=== PATIENT | female | born 1995 | race Two or more races ===

== ENCOUNTER 2017-07-08 18:45 | Outpatient (CLI) | payer MEDICAID ==
[2017-07-08 19:26] LABS: BILIRUBIN,URINE NEGATIVE (NEGATIVE); COLOR,URINE YELLOW; GLUCOSE, URINE NEGATIVE (NEGATIVE); KETONES,URINE NEGATIVE (NEGATIVE); LEUKOCYTE ESTERASE,URINE NEGATIVE (NEGATIVE); NITRITE,URINE NEGATIVE (NEGATIVE); PROTEIN,URINE NEGATIVE (NEGATIVE); URINE SPECIFIC GRAVITY 1.024
[2017-07-08 19:31] LABS: APPEARANCE,URINE CLEAR
[2017-07-08 19:34] LABS: AMNISURE (ROM) NEGATIVE (NEGATIVE)
[2017-07-08 19:41] LABS: URINE AMPHETAMINES SCREEN NEGATIVE; URINE BARBITURATES SCREEN NEGATIVE; URINE BENZODIAZEPINES SCREEN NEGATIVE; URINE COCAINE SCREEN NEGATIVE; URINE MARIJUANA (THC) SCREEN NEGATIVE; URINE METHADONE SCREEN NEGATIVE; URINE PHENCYCLIDINE SCREEN NEGATIVE
--- NOTE | 2017-07-08 20:31 | Non Stress Test Report ---
Non Stress Test Datetime Report Generated by CPN: 07/08/2017 20:31 DEMOGRAPHIC EGA NST: 37.5 INDICATION Indication for Study: Ordered by Provider VITAL SIGNS Temperature - NST: 97.4 Pulse - NST: 86 RESP - NST: 16 NBPSYS NST: 117 NBPDIA NST: 62 URINE RESULTS Urine Protein, NST: Negative Urine Ketones - NST: Negative Urine Glucose - NST: Negative Urine Blood - NST: Negative MONITORING Monitor Explained: Monitor Explained; Test Explained; Patient Verbalized Understanding Time on Monitor: 07/08/2017 19:23 Time off Monitor: 07/08/2017 20:02 NST Duration: 39 NST INTERVENTIONS NST Interventions: None Physician Notified NST: Dr. Rizo BABY A: [id number] BABY A Movement : Present Contraction Frequency : Ctx x3 FHR Baseline : 145 Accelerations : 15X15 Decelerations : Variable Variability : Moderate 6-25bpm NST Review: Meets Criteria for Reactive NST NST Review and Verified By : B Kerns, RN NST Results: Reactive NST COMMENTS NST Comments: Dr Rizo aware of spontaneous decel. NST REPORT Report Trigger: Send Report
== END 2017-07-08 20:17 | disposition home or self-care (01) ==
LOC: LC 18:45
PROVIDERS: ATTEND Student in an Organized Health Care Education/Training Program
PROC: 4A1HXCZ Monitoring of Products of Conception, Cardiac Rate, External Approach (ICD-10-PCS; principal; 2017-07-08)
DX: O47.1 False labor at or after 37 completed weeks of gestation (principal); Z3A.37 37 weeks gestation of pregnancy
CPT/HCPCS: 59025; 80307; 81005; 84112

== ENCOUNTER 2017-07-10 23:07 | Outpatient (CLI) | payer MEDICAID ==
[2017-07-11 00:02] LABS: APPEARANCE,URINE CLEAR; BILIRUBIN,URINE NEGATIVE (NEGATIVE); COLOR,URINE YELLOW; GLUCOSE, URINE NEGATIVE (NEGATIVE); KETONES,URINE NEGATIVE (NEGATIVE); LEUKOCYTE ESTERASE,URINE NEGATIVE (NEGATIVE); NITRITE,URINE NEGATIVE (NEGATIVE); PROTEIN,URINE NEGATIVE (NEGATIVE); URINE SPECIFIC GRAVITY 1.016; UROBILINOGEN,URINE NEGATIVE mg/dL (<2.0)
[2017-07-11 00:24] LABS: URINE AMPHETAMINES SCREEN NEGATIVE; URINE BARBITURATES SCREEN NEGATIVE; URINE BENZODIAZEPINES SCREEN NEGATIVE; URINE COCAINE SCREEN NEGATIVE; URINE MARIJUANA (THC) SCREEN NEGATIVE; URINE METHADONE SCREEN NEGATIVE; URINE PHENCYCLIDINE SCREEN NEGATIVE
--- NOTE | 2017-07-11 04:13 | Non Stress Test Report ---
Non Stress Test Datetime Report Generated by CPN: 07/11/2017 04:13 DEMOGRAPHIC EGA NST: 38.1 INDICATION Indication for Study: Other Indication for Study (NST) Other: LC URINE RESULTS Urine Protein, NST: Negative Urine Ketones - NST: Negative Urine Glucose - NST: Negative Urine Blood - NST: Negative MONITORING Monitor Explained: Monitor Explained; Test Explained; Patient Verbalized Understanding Time on Monitor: 07/10/2017 23:29 Time off Monitor: 07/11/2017 23:50 NST Duration: 1461 NST INTERVENTIONS NST Interventions: PO Hydration Physician Notified NST: Landaverde BABY A: [id number] BABY A Movement : Present Contraction Frequency : x2 +irritability FHR Baseline : 140 Accelerations : 15X15 Decelerations : None Variability : Moderate 6-25bpm NST Review: Meets Criteria for Reactive NST NST Review and Verified By : Filippo Alberts RN NST Results: Reactive NST REPORT Report Trigger: Send Report
== END 2017-07-11 04:13 | disposition home or self-care (01) ==
LOC: LC 23:07
PROVIDERS: ATTEND Student in an Organized Health Care Education/Training Program
PROC: 4A1HXCZ Monitoring of Products of Conception, Cardiac Rate, External Approach (ICD-10-PCS; principal; 2017-07-10)
DX: O47.1 False labor at or after 37 completed weeks of gestation (principal); Z3A.38 38 weeks gestation of pregnancy
CPT/HCPCS: 59025; 80307; 81005

== ENCOUNTER 2017-07-19 08:42 | Inpatient (IN) | payer MEDICAID ==
[2017-07-19] MEDS ORDERED: HYDROXYZINE PAMOATE 50 MG CAPSULE ONE (09:23)
[2017-07-19 09:40] LABS: APPEARANCE,URINE CLEAR; BILIRUBIN,URINE NEGATIVE (NEGATIVE); COLOR,URINE YELLOW; GLUCOSE, URINE NEGATIVE (NEGATIVE); KETONES,URINE NEGATIVE (NEGATIVE); LEUKOCYTE ESTERASE,URINE NEGATIVE (NEGATIVE); NITRITE,URINE NEGATIVE (NEGATIVE); PROTEIN,URINE NEGATIVE (NEGATIVE); URINE SPECIFIC GRAVITY 1.019; UROBILINOGEN,URINE NEGATIVE mg/dL (<2.0)
[2017-07-19 09:56] LABS: URINE AMPHETAMINES SCREEN NEGATIVE; URINE BARBITURATES SCREEN NEGATIVE; URINE BENZODIAZEPINES SCREEN NEGATIVE; URINE COCAINE SCREEN NEGATIVE; URINE MARIJUANA (THC) SCREEN NEGATIVE; URINE METHADONE SCREEN NEGATIVE; URINE PHENCYCLIDINE SCREEN NEGATIVE
[2017-07-19] MEDS ORDERED: FENTANYL/BUPIVACAINE/NS/PF 200 MCG/100 ML RTUINJ EPI ONE (10:30)
[2017-07-19] MEDS ORDERED: OXYTOCIN/NORMAL SALINE 20 UNIT/1,000 ML RTUINJ ONE (10:30)
[2017-07-19] MEDS ORDERED: EPHEDRINE SULFATE INJ 50 MG/1 ML AMPULE ONE (10:30)
[2017-07-19] MEDS ORDERED: LIDOCAINE 1% INJ-PF (10 MG/ML) 30 ML SDV ONE (10:30)
[2017-07-19] MEDS ORDERED: MISOPROSTOL 0.2 MG TABLET ONE (10:30)
[2017-07-19] MEDS ORDERED: BUPIVACAINE HCL 0.25 % INJ/PF (2.5 MG/1 ML) 30 ML VIAL ONE (10:30)
[2017-07-19] MEDS ORDERED: RINGERS SOLUTION,LACTATED 1,000 ML IV PRN (11:08)
[2017-07-19 11:30] LABS: ABSOLUTE LYMPHOCYTES (AUTO) 1.4 10^3/uL (0.5-4.7); ABSOLUTE MONOCYTES (AUTO) 0.6 10^3/uL (0.1-1.4); ABSOLUTE NEUT (AUTO) 6.8 10^3/uL (1.7-8.2); BASOPHILS % (AUTO) 0.2 % (0-2); EOSINOPHILS % (AUTO) 0.2 % (0-6); HEMATOCRIT 34.5 % (36.0-47.0); HEMOGLOBIN 11.5 g/dL (12.0-15.5); LYMPHOCYTES % (AUTO) 16.1 % (13-45); MEAN CORPUSCULAR HEMOGLOBIN 28.8 pg (27.0-33.4); MEAN CORPUSCULAR HGB CONC 33.3 g/dL (32.0-36.0); MEAN CORPUSCULAR VOLUME 86 fl (80-97); MONOCYTES % (AUTO) 7.2 % (3-13); PLATELET COUNT 140 10^3/uL (150-450); RED BLOOD COUNT 3.99 10^6/uL (3.72-5.28); RED CELL DISTRIBUTION WIDTH 13.8 % (11.5-14.0); SEGMENTED NEUTROPHILS % (AUTO) 76.3 % (42-78); TOTAL CELLS COUNTED % (AUTO) 100 %; WHITE BLOOD COUNT 8.9 10^3/uL (4.0-10.5)
--- NOTE | 2017-07-19 11:41 | Admission Physical ---
Datetime Report Generated by CPN: 07/19/2017 11:40 CURRENT ADMISSION Chief Complaint: Uterine Contractions Indication for Induction: Not Applicable Indication for Induction: Term, Intrauterine ; Active Labor Admit Plan: Admit to Unit; Initiate Labor Protocol ALLERGIES Medication Allergies: No Medication Allergies: No Known Allergies (07/19/2017) Medication Allergies: No Known Allergies (07/10/2017) Medication Allergies: No Known Allergies (07/08/2017) Medication Allergies: None Latex: No Latex Allergies Food Allergies: None Environmental Allergies: None OBSTETRICAL HISTORY EDC: 07/24/2017 00:00 : 1 Para: 0 Term: 0 : 0 SAB: 0 IAB: 0 Ectopic: 0 Livin Cesareans: 0 VBACs: 0 Multiple Births: 0 Gestational Diabetes: No Rh Sensitization: No Incompetent Cervix: No BRIA: No Infertility: No ART Treatment: No Uterine Anomaly: No IUGR: No Hx Previous C/S: No Macrosomia: No Hx Loss/Stillborn: No PIH: No Hx : No Placenta Previa/Abruption: No Depression/PP Depression: No PTL/PROM: No Post Hemorrhage: No Current Procedures: NST Obstetrical History Comments: G1- current SEE RECORDS Alcohol: No Marijuana : No Cocaine: No Other Illicit Drugs: No Cigarettes: Never Smoker. [id number] MEDICAL HISTORY Diabetes: No Blood Transfusion: No Pulmonary Disease (Asthma, TB): No Breast Disease: No Hypertension: No Superintendent Meter Tests Surgery: No Heart Disease: No Hosp/Surgery: No Autoimmune Disorder: No Anesthetic Complications: No Kidney Disease: No Abnormal Pap Smear: No Neuro/Epilepsy: No Psychiatric Disorders: No Other Medical Diseases: No Hepatitis/Liver Disease: No Significant Family History: No Varicosities/Phlebitis: No Trauma/Violence : No Thyroid Dysfunction: No INFECTIOUS HISTORY Gonorrhea: No Genital Herpes: No Chlamydia: No Tuberculosis: No Syphilis: No Hepatitis: No HIV/AIDS Exposure: No Rash or Viral Illness: No HPV: No PHYSICAL EXAM General: Normal HEENT: Normal Neurologic: Normal Thyroid: Deferred Heart: Normal Lungs: Normal Breast: Deferred Back: Normal Abdomen: Normal Genitourinary Exam: Normal Extremities: Normal DTRs: Normal Pelvic Type: Adequate Vital Signs: Reviewed VAGINAL EXAM Dilatation: 5 Effacement: 100 Station: -1 Contraction Comments: q 2-3 FETUS A EGA: 39.2 Monitoring: External US FHR- Baseline: 150 Variability: Moderate 6-25bpm Accelerations: 15X15 Decelerations: None FHR Category: Category I Presentation: Vertex Admit Comment: 21yo at 39+2ega presented for uterine ctx with cervical change noted within an hour to 5cm. Admit to L_D for active labor. pelvis adequate for LAURA. Reassuring FWB. GBS negative.Late transfer from [facility]. Anticipate . INFORMED CONSENT Informed Consent Obtained: Vaginal Delivery; Risks, Benefits and Alternatives Discussed Signature: with User ID: [email or web address]
[2017-07-19] MEDS ORDERED: PHENYLEPHRINE HCL INJ/PF 10 MG/1 ML SDV ONE (11:52)
[2017-07-19] MEDS ORDERED: FENTANYL CITRATE INJ/PF 100 MCG/2 ML AMPUL ONE (11:52)
[2017-07-19] MEDS ORDERED: RINGERS SOLUTION,LACTATED 1,000 ML IV ONE (12:30)
--- NOTE | 2017-07-19 14:05 | L&D Progress Notes ---
PROGRESS NOTES Datetime Report Generated by CPN: 07/19/2017 14:05 PROGRESS NOTE Impression: Normal Progression of Labor Procedures: Artificial ROM; Sterile Vag Exam Plan: Continue Present Management Informed Consent Obtained: Vaginal Delivery; Risks, Benefits and Alternatives Discussed Comment: SVE w AROM-bloody fluid noted. VAGINAL EXAM Dilatation: 7 Dilatation: 5 Effacement: 100 Effacement: 100 Station: -1 Station: -1 Contractions: q 2-3 MEMBRANES Membranes: Ruptured Amniotic Fluid Color: Bloody FETUS A FHR - Baseline: 150 Monitoring: External US Variability: Moderate 6-25bpm Decelerations: Early; Late Presentation: Vertex SIGNATURE SIGNATURE: ,[id number];,[id number];,[id number] SIGNATURE: ,[id number];,[id number] SIGNATURE: ,[id number] SIGNATURE: ,[id number] Assignment: Adriana Landaverde MD Signature: with User ID: [email or web address] : with User ID: [email or web address] : I personally evaluated and examined the patient in conjunction with the MLP and agree with the assessment, treatment plan and disposition.
[2017-07-19] MEDS ORDERED: PROMETHAZINE HCL 25 MG TABLET PO PRN (17:09)
[2017-07-19] MEDS ORDERED: PROMETHAZINE HCL INJ 25 MG/1 ML VIAL IV PRN (17:09)
[2017-07-19] MEDS ORDERED: BENZOCAINE/MENTHOL AEROSOL SPRAY 56 ML TOP PRN (17:09)
[2017-07-19] MEDS ORDERED: DIPHENHYDRAMINE HCL 25 MG CAPSULE PO PRN (17:09)
[2017-07-19] MEDS ORDERED: GLYCERIN/WITCH HAZEL LEAF 1 EACH MED..PAD TP PRN (17:09)
[2017-07-19] MEDS ORDERED: OXYTOCIN/NORMAL SALINE 20 UNIT/1,000 ML RTUINJ IV PRN (17:09)
[2017-07-19] MEDS ORDERED: MEASLES,MUMPS&RUBELLA VACC/PF 0.5 ML VIAL SUBCUT PRN (17:09)
[2017-07-19] MEDS ORDERED: DIBUCAINE 1% OINTMENT 28 GM TP PRN (17:09)
[2017-07-19] MEDS ORDERED: MAGNESIUM HYDROXIDE SUSP 30 ML UDCUP PO PRN (17:09)
[2017-07-19] MEDS ORDERED: PROMETHAZINE HCL 25 MG SUPP.RECT PR PRN (17:09)
[2017-07-19] MEDS ORDERED: DIPH/PERTUSS(ACELL)/TETANUS VAC/PF 0.5 ML SYR (>=10YO) IM PRN (17:09)
[2017-07-19] MEDS ORDERED: ACETAMINOPHEN 325 MG TABLET PO PRN (17:09)
[2017-07-19] MEDS ORDERED: ZOLPIDEM TARTRATE 5 MG TABLET PO PRN (17:09)
[2017-07-19] MEDS ORDERED: NA PHOS,M-B/NA PHOS,DI-BA (ADULT) 133 ML ENEMA PR PRN (17:09)
[2017-07-19] MEDS ORDERED: PSEUDOEPHEDRINE HCL 30 MG TABLET PO PRN (17:09)
[2017-07-19] MEDS ORDERED: ACETAMINOPHEN WITH CODEINE #3 TABLET PO PRN ×2 (17:09)
--- NOTE | 2017-07-19 17:41 | Warning Signs in Babies ---
VOD Warning Signs Datetime Report Generated by [facility]: 07/19/2017 17:40 VOD#608 -Warning Signs in Babies: Needs to be viewed. (07/08/2017 18:51:Muriel Carmichael RN)
[2017-07-19] MEDS: FAMOTIDINE 20 MG TABLET PO SCH (21:57)
[2017-07-19] MEDS: IBUPROFEN 800 MG TABLET PO SCH (21:58)
[2017-07-20] MEDS: FERROUS SULFATE 325 MG TABLET PO SCH ×3 (04:41→18:31)
[2017-07-20] MEDS: DOCUSATE SODIUM 100 MG CAPSULE PO SCH ×3 (04:41→18:31)
[2017-07-20] MEDS: IBUPROFEN 800 MG TABLET PO SCH ×3 (05:45→22:30)
[2017-07-20 07:28] LABS: HEMATOCRIT 30.6 % (36.0-47.0); HEMOGLOBIN 10.4 g/dL (12.0-15.5); MEAN CORPUSCULAR HEMOGLOBIN 29.3 pg (27.0-33.4); MEAN CORPUSCULAR VOLUME 86 fl (80-97); PLATELET COUNT 127 10^3/uL (150-450); RED BLOOD COUNT 3.55 10^6/uL (3.72-5.28); WHITE BLOOD COUNT 9.5 10^3/uL (4.0-10.5)
--- NOTE | 2017-07-20 08:52 | Delivery Summary ---
Del Sum A-C Datetime Report Generated by CPN: 07/20/2017 08:52 DELIVERY PERSONNEL DELIVERY PERSONNEL: [id number] Delivery Doctor:: Xiomy Buchanan CNM Labor and Delivery Nurse:: Muriel Carmichael RN Labor and Delivery Nurse:: XU Mathew Starchmaker/ACQUISITION MARKETING MANAGER: Nell Whiting, DIRECTOR INDUSTRIAL RELATIONS Additional Personnel: : Linda Abdalla RN MATERNAL INFORMATION Delivery Anesthesia: Epidural Medications After Delivery: Pitocin Bolus-Please Comment Meds After Delivery Comment: pitocin 20 units in 1000ml NS bolusing after delivery of placenta Estimated Blood Loss (ml): 250 Maternal Complications: None Provider Comments: viable female in vertex OA to WILLA at 1648 under epidural anesthesia. Bulb suctioned, nose and mouth, after delivery. Spontaneous respirations and cry. 3-vessel cord. Apgars 9-9. Cord clamped x 2, after 2 min delay, then cut by FOB. Placenta, membranes, and cord expelled at 1654, Be. Placenta appears intact. Vaginal tear repaired as directed above. Patient tolerated procedure well. FF at U-3. Hemostasis achieved. LABOR SUMMARY EDC: 07/24/2017 00:00 No. Babies in Womb: 1 Attempted: No Labor Anesthesia: Epidural LABOR INFORMATION Reason for Induction: Not Applicable Onset of Labor: 07/19/2017 10:14 Complete Dilatation: 07/19/2017 15:59 Oxytocin: N/A Group B Beta Strep: negative Steroids Given: None Reason Steroids Not Administered: Not Applicable MEMBRANES Membranes Rupture Method: Artificial Rupture of Membranes: 07/19/2017 13:57 Length of Rupture (hr): 2.85 Amniotic Fluid Color: Bloody Amniotic Fluid Amount: Small Amniotic Fluid Odor: Normal STAGES OF LABOR Stage 1 hr: 5 Stage 1 min: 45 Stage 2 hr: 0 Stage 2 min: 49 Stage 3 hr: 0 Stage 3 min: 6 Total Time in Labor hr: 6 Total Time in Labor min: 40 VAGINAL DELIVERY Episiotomy: None Laceration #1: Vaginal Laceration Extension #1: First Degree Laceration #2: None Laceration Extension #2: N/A Laceration #3: None Laceration Extension #3: N/A Laceration Repair: Yes Laceration Repair Note: 1st degree vaginal tear repaired with 3-0 Chromic using interrupted stitches Sponge Count Correct: N/A Sharps Count Correct: Yes CSECTION DELIVERY Primary Indication: N/A Secondary Indication: N/A CSection Incidence: N/A Labor: N/A Elective: N/A CSection Incision: N/A BABY A INFORMATION Delivery Date/Time: 07/19/2017 16:48 Method of Delivery: Vaginal Born in Route : No : N/A Forceps: N/A Vacuum Extraction: N/A Shoulder Dystocia : No PRESENTATION/POSITION BABY A Presentation: Cephalic Presentation: Cephalic Presentation: Cephalic Presentation: Cephalic Cephalic Presentation: Vertex Vertex Position: Left Occipital Anterior Breech Presentation: N/A PLACENTA INFORMATION BABY A Placenta Delivery Time : 07/19/2017 16:54 Placenta Method of Delivery: Spontaneous Placenta Status: Delivered SCORES BABY A Heart Rate 1 min: >100 bpm Resp Effort 1 min: Good Cry Reflex Irritability 1 min: Cough or Sneeze or Pulls Away Muscle Tone 1 min: Active Motion Color 1 min: Body [place], Extremities Blue Resuscitation Effort 1 min: Tactile Stimulation SCORE 1 MIN: 9 Heart Rate 5 min: >100 bpm Resp Effort 5 min: Good Cry Reflex Irritability 5 min: Cough or Sneeze or Pulls Away Muscle Tone 5 min: Active Motion Color 5 min: Body [place], Extremities Blue Resuscitation Effort 5 min: Tactile Stimulation SCORE 5 MIN: 9 INFORMATION BABY A Gestational Age at Delivery: 39.2 Gestational Status: Full Term- 39- 40.6 Weeks Infant Outcome : Liveborn Infant Condition : Stable Sex: Female IDENTIFICATION BABY A Verification Date/Time: 07/19/2017 17:52 ID Band Number: [id number] Mother's Name Verified: Yes Infant RN Verifying : S. Camp, RN/ C. [place], RN WEIGHT/LENGTH BABY A Birthweight (gm): 2790 Infant Weight (lb): 6 Infant Weight (oz): 2 Length (in): 19.50 Length (cm): 49.53 CORD INFORMATION BABY A No. Cord Vessels: 3 Nuchal Cord : N/A Cord Blood Taken: Yes-For Storage (Mom's Blood type +) Infant Suction: Mouth; Nose (Annotations: Data stored by [facility] on behalf of user) ASSESSMENT BABY A Complications: Meconium Physical Findings at Delivery: Within Normal Limits; Molding of the Head Respirations: Appears Normal Skin to Skin: Yes Care By: leanne abdalla rn Transferred To: Remains with Mother BABY B INFORMATION : N/A SIGNATURES Assignment: Adriana Landaverde MD Signature: with User ID: [email or web address] : with User ID: [email or web address] : I personally evaluated and examined the patient in conjunction with the MLP and agree with the assessment, treatment plan and disposition. : I personally evaluated and examined the patient in conjunction with the MLP and agree with the assessment, treatment plan and disposition.
[2017-07-20] MEDS: FAMOTIDINE 20 MG TABLET PO SCH ×2 (09:09→21:00)
[2017-07-20] MEDS: SENNOSIDES/DOCUSATE 8.6-50 MG 1 EACH TABLET PO SCH (09:09)
[2017-07-20] MEDS: PRENATAL VITAMIN W DHA CAPSULE PO SCH (09:10)
--- NOTE | 2017-07-20 10:13 | PDOC PROGRESS REPORT ---
Subjective-OB Progress Note for:: 07/20/17 Subjective: Day 1 s/p Denies concerns, voiding without difficulty, lochia is stable, pain well controlled. Physical Exam (OB) Vital Signs: Temp Pulse Resp BP Pulse Ox 98.3 F 75 15 101/52 L 99 07/20/17 07:31 07/20/17 07:31 07/20/17 07:31 07/20/17 07:31 07/20/17 07:31 Intake & Output 07/19/17 07/20/17 07/21/17 06:59 06:59 06:59 Weight 73.2 kg - Lochia Lochia Amount: Scant < 10 ml Lochia Color: Rubra/Red - Abdomen Description: Soft, Flat Hernia Present: No Fundal Description: Firm, Midline Fundal Height: u/u - u/2 Objective-Diagnostic Laboratory: 07/20/17 07:04 07/19/17 07/19/17 07/20/17 11:14 11:14 07:04 WBC 8.9 9.5 RBC 3.99 3.55 L Hgb 11.5 L 10.4 L Hct 34.5 L 30.6 L MCV 86 86 MCH 28.8 29.3 MCHC 33.3 34.0 RDW 13.8 14.0 Plt Count 140 L 127 L Seg Neutrophils % 76.3 Lymphocytes % 16.1 Monocytes % 7.2 Eosinophils % 0.2 Basophils % 0.2 Absolute Neutrophils 6.8 Absolute Lymphocytes 1.4 Absolute Monocytes 0.6 Absolute Eosinophils 0.0 Absolute Basophils 0.0 Blood Type A POSITIVE Antibody Screen NEGATIVE Assessment and Plan(PN) - Assessment and Plan (1) Limited care Qualifiers: Trimester: third trimester Qualified Code(s): O09.33 - Supervision of with insufficient care, third trimester Is this a current diagnosis for this admission?: Yes Plan: d/c planning (2) Meconium in amniotic fluid affecting management of mother, delivered Is this a current diagnosis for this admission?: Yes Plan: monitor baby (3) Vaginal delivery Is this a current diagnosis for this admission?: Yes Plan: routine pp care - Time Spent with Patient Time with patient: Less than 15 minutes Critical Time spent with patient: Less than 15 minutes Medications reviewed and adjusted accordingly: Yes - Disposition Anticipated Discharge: Home Within: within 24 hours
[2017-07-21] MEDS: IBUPROFEN 800 MG TABLET PO SCH (05:56)
--- NOTE | 2017-07-21 08:35 | PDOC DISCHARGE SUMMARY ---
Final Diagnosis Discharge Date: 07/21/17 - Final Diagnosis (1) Limited care Is this a current diagnosis for this admission?: Yes (2) Meconium in amniotic fluid affecting management of mother, delivered Is this a current diagnosis for this admission?: Yes (3) Vaginal delivery Is this a current diagnosis for this admission?: Yes Discharge Data - Discharge Medication Prescriptions: Docusate Sodium [Colace 100 mg Capsule] 100 mg PO BID #60 capsule Ferrous Sulfate [Feosol 325 mg Tablet] 325 mg PO BID #60 tablet Ibuprofen [Motrin 800 mg Tablet] 800 mg PO Q8 #60 tablet Home Medications: Vit No.129/Iron/Folic [ One Daily Tablet] 1 each PO DAILY 07/08 Docusate Sodium [Colace 100 mg Capsule] 100 mg PO BID #60 capsule 07/21/17 Ferrous Sulfate [Feosol 325 mg Tablet] 325 mg PO BID #60 tablet 07/21/17 Ibuprofen [Motrin 800 mg Tablet] 800 mg PO Q8 #60 tablet 07/21/17 Gestational Age: 39.2 Reason(s) for Admission: Onset of Labor Procedures: NST Intrapartum Procedure(s): Spontaneous Vaginal Delivery Complication(s): Laceration-Vaginal Laceration-Degree: 1st - [place] Data Baby 1 Female at 1 minute: 9 at 5 minutes: 9 Weight: 2970 kg Home with Mother: Yes Complications: No - Diagnosis Test Laboratory: Temp Pulse Resp BP Pulse Ox 98.3 F 78 16 103/53 L 97 07/20/17 20:00 07/20/17 20:00 07/20/17 20:00 07/20/17 20:00 07/20/17 20:00 07/19/17 07/19/17 07/20/17 08:53 11:14 07:04 RBC 3.99 3.55 L Hgb 11.5 L 10.4 L Hct 34.5 L 30.6 L Urine Opiates Screen NEGATIVE - Discharge information/Instructions Discharge Activity: Activity As Tolerated, Pelvic Rest, No tub bath Discharge Diet: Regular Disposition: HOME, SELF-CARE Follow up with: [facility] in: 4, Weeks
[2017-07-21 09:43] VITALS: BP 115/61
[2017-07-21] MEDS: PRENATAL VITAMIN W DHA CAPSULE PO SCH (10:50)
[2017-07-21] MEDS: DOCUSATE SODIUM 100 MG CAPSULE PO SCH (10:51)
[2017-07-21] MEDS: SENNOSIDES/DOCUSATE 8.6-50 MG 1 EACH TABLET PO SCH (10:51)
[2017-07-21] MEDS: FERROUS SULFATE 325 MG TABLET PO SCH (10:51)
[2017-07-21] MEDS: FAMOTIDINE 20 MG TABLET PO SCH (10:53)
== END 2017-07-21 11:34 | disposition home or self-care (01) | DRG 775 ==
LOC: LC 08:42 → LR 10:26 → 2S 19:45
PROVIDERS: ADMIT Student in an Organized Health Care Education/Training Program; ATTEND Student in an Organized Health Care Education/Training Program
PROC: 10E0XZZ Delivery of Products of Conception, External Approach (ICD-10-PCS; principal; 2017-07-19)
PROC: 0HQ9XZZ Repair Perineum Skin, External Approach (ICD-10-PCS; 2017-07-19)
PROC: 10907ZC Drainage of Amniotic Fluid, Therapeutic from Products of Conception, Via Natural or Artificial Opening (ICD-10-PCS; 2017-07-19)
PROC: 3E0234Z Introduction of Serum, Toxoid and Vaccine into Muscle, Percutaneous Approach (ICD-10-PCS; 2017-07-19)
DX: O77.0 Labor and delivery complicated by meconium in amniotic fluid (principal); O70.0 First degree perineal laceration during delivery; Z28.21 Immunization not carried out because of patient refusal; Z3A.39 39 weeks gestation of pregnancy; Z37.0 Single live birth
CPT/HCPCS: 36415; 80307; 81005; 85025; 85027; 86592; 86850; 86900; 86901; 88307; 94760; J2370; J2590; J3010; J3490